=== PATIENT | female | born 1990 | race Two or more races ===

== ENCOUNTER → 2021-12-03 | Outpatient (CLI) | payer OTHER | END | disposition home or self-care (01) | LOC: LAB 08:57 | PROVIDERS: ATTEND Nurse Practitioner Family | DX: Z20.9 Contact with and (suspected) exposure to unspecified communicable disease (principal) | CPT/HCPCS: 36415; 86706; 86735; 86762 ==

== ENCOUNTER 2023-03-15 13:20 | Emergency (ER) | payer MEDICAID, OTHER ==
[~2023-03-15] VITALS: Ht 154.9 cm; Wt 60.4 kg
[2023-03-15 16:23] VITALS: BP 124/87
[2023-03-15] MEDS ORDERED: SODIUM CHLORIDE 0.9% 2,000 ML IV ONE (17:30)
[2023-03-15 17:55] LABS: Basophils # (auto) 0.1 10 ^3/uL (0-0.2); Basophils % (auto) 0.6 % (0.0-2.0); Eosinophils # (auto) 0.1 10 ^3/uL (0-0.8); Eosinophils % (auto) 0.6 % (0.0-7.0); Hematocrit 41.2 % (36.0-46.0); Hemoglobin 13.8 g/dL (12.2-16.2); Lymphocytes # (auto) 2.2 10 ^3/uL (0.4-5.4); Mean Corpuscular Hemoglobin 30.1 pg (28.0-32.0); Mean Corpuscular Hgb Conc. 33.6 g/dL (32.0-36.0); Mean Corpuscular Volume 89.5 fL (80.0-100.0); Monocytes # (auto) 0.6 10 ^3/uL (0-1.3); Monocytes % (auto) 6.2 % (0.0-12.0); Neutrophils % (auto) 70.6 % (37.0-80.0); Nucleated Red Blood Cells % 0.1 %; Red Cell Distribution Width 13.2 % (11.8-14.3)
[2023-03-15 18:13] LABS: Albumin 3.9 g/dL (3.4-5.0); Potassium 3.7 mmol/L (3.5-5.1)
[2023-03-15 18:16] LABS: BUN/Creatinine Ratio 11.3 (10.0-20.0); Bilirubin, Total 0.3 mg/dL (0.2-1.0); Total Protein 6.9 g/dL (6.4-8.2)
[2023-03-15] MEDS ORDERED: EMTR200C5 PO ×2 (19:35)
[2023-03-15] MEDS ORDERED: TENO300T9 PO ×2 (19:35)
[2023-03-15] MEDS ORDERED: RALT400T PO ×2 (19:35)
[2023-03-16] MEDS ORDERED: EMTR200C5 PO (15:06)
[2023-03-16] MEDS ORDERED: TENO300T9 PO (15:07)
[2023-03-16] MEDS ORDERED: RALT400T PO ×2 (15:07→18:50)
[2023-03-16] MEDS ORDERED: EMTRTAB7 PO (18:50)
[2023-03-17 08:53] LABS: Hepatitis B Surface Antibody Positive (Negative)
== END 2023-03-15 20:01 | disposition home or self-care (01) ==
LOC: ER 13:20
DX: Z00.00 Encounter for general adult medical examination without abnormal findings (principal); R10.2 Pelvic and perineal pain; Z79.899 Other long term (current) drug therapy
CPT/HCPCS: 36415; 80053; 84702; 85025; 86703; 86706; 86803; 87340; 96360; 96361; 99283; J7030